=== PATIENT | female | born 1985 | race Caucasian/White ===

== ENCOUNTER 2016-08-14 11:44 | Emergency (ER) | payer SELFPAY ==
[~2016-08-14] VITALS: Ht 154.9 cm; Wt 97.0 kg
[2016-08-14] MEDS ORDERED: SUMA50TA3 PO (12:14)
[2016-08-14] MEDS ORDERED: PROM12.553 RC (12:14)
[2016-08-14] MEDS ORDERED: ONDANSETRON 2MG/ML, 2ML ONE (12:22)
[2016-08-14] MEDS ORDERED: MORPHINE SULFATE 4 MG/ML, 1ML ONE (12:22)
[2016-08-14] MEDS ORDERED: MAALOX/HYOSCYAMINE/LIDOCAINE 45 ML BOTTLE ONE (12:22)
[2016-08-14] MEDS ORDERED: SODIUM CHLORIDE FLUSH 10ML SYR IVF ONE ×2 (12:30)
[2016-08-14] MEDS ORDERED: PLEASE ENTER ALLERGIES MC SCH ×2 (12:30)
[2016-08-14] MEDS ORDERED: NITROGLYCERIN SINGLE TAB 0.4 MG SL PRN (12:30)
[2016-08-14] MEDS ORDERED: PLEASE ENTER HEIGHT AND WEIGHT MC SCH (12:30)
[2016-08-14] MEDS ORDERED: MAALOX/HYOSCYAMINE/LIDOCAINE 45 ML BOTTLE PO ONE (12:30)
[2016-08-14] MEDS ORDERED: ASPIRIN 81 MG TABLET CHEW PO ONE (12:30)
[2016-08-14] MEDS ORDERED: MORPHINE SULFATE 4 MG/ML, 1ML IVPush PRN (12:30)
[2016-08-14] MEDS ORDERED: ONDANSETRON 2MG/ML, 2ML IVPush ONE (12:30)
[2016-08-14 12:48] LABS: ASPARTATE AMINO TRANSFERASE 16 U/L (15-37); BLOOD UREA NITROGEN 9 mg/dL (7-18)
[2016-08-14 13:01] LABS: IS PT STATUS REG ER OR PRE ER? YES
[2016-08-14] MEDS ORDERED: KETOROLAC 30 MG/1 ML IVPush ONE (14:00)
[2016-08-14] MEDS ORDERED: KETOROLAC 30 MG/1 ML ONE (14:03)
[2016-08-14] MEDS ORDERED: OMNIPAQUE 350 MG/ML, 100ML BOTTLE ONE (15:22)
[2016-08-14 16:20] VITALS: BP 106/75
[2016-08-17] MEDS ORDERED: Tramadol Hcl PO (14:59)
== END 2016-08-14 16:53 | disposition home or self-care (01) ==
LOC: ED 15:28
DX: R07.2 Precordial pain (principal)
CPT/HCPCS: 36415; 71010; 71275; 80053; 83690; 83880; 84436; 84439; 84443; 84481; 84484; 84703; 85025; 85379; 85651; 86140; 93005; 96374; 96375; 99285; J1885; J2405; Q9967

== ENCOUNTER 2016-08-18 10:18 | Emergency (ER) | payer SELFPAY ==
[~2016-08-18] VITALS: Ht 154.9 cm; Wt 96.5 kg
[~2016-08-18 10:18] MED LIST: PROM12.553 RC; SUMA50TA3 PO; Tramadol Hcl PO
[2016-08-18 11:16] LABS: ANTI-Xa-UNFRACTIONATED HEP 0.04 IU/mL (0.30-0.70)
[2016-08-18 11:18] LABS: ASPARTATE AMINO TRANSFERASE 14 U/L (15-37); BLOOD UREA NITROGEN 10 mg/dL (7-18)
[2016-08-18 12:46] VITALS: BP 132/82
== END 2016-08-18 12:48 ==
LOC: ED 11:29
DX: R42 Dizziness and giddiness (principal); Z90.710 Acquired absence of both cervix and uterus
CPT/HCPCS: 36415; 70450; 80053; 85025; 85520; 85610; 85651; 85730; 93005; 99285

== ENCOUNTER 2016-10-14 15:15 | Emergency (ER) | payer SELFPAY ==
[~2016-10-14] VITALS: Ht 154.9 cm; Wt 98.6 kg
[2016-10-14] MEDS ORDERED: KETOROLAC 30 MG/1 ML IM ONE (16:00)
[2016-10-14] MEDS ORDERED: KETOROLAC 30 MG/1 ML ONE (16:03)
[2016-10-14 16:53] VITALS: BP 120/78
[2016-10-14 16:54] LABS: BLOOD UREA NITROGEN 8 mg/dL (7-18)
[2016-10-14 16:58] LABS: IS PT STATUS REG ER OR PRE ER? YES
== END 2016-10-14 17:30 | disposition home or self-care (01) ==
LOC: ED 16:11
DX: R07.2 Precordial pain (principal); R07.89 Other chest pain
CPT/HCPCS: 36415; 71020; 80048; 82040; 84484; 84703; 85025; 93005; 96372; 99285; J1885

== ENCOUNTER 2017-06-17 19:35 | Emergency (ER) | payer OTHER ==
[~2017-06-17] VITALS: Ht 154.9 cm; Wt 100.0 kg
[~2017-06-17 19:35] MED LIST changes: +ALBU18HF INH
[2017-06-17 20:29] LABS: BASOPHILS # (AUTO) 0.06 x10^3/uL (0-0.1); BASOPHILS % (AUTO) 1 % (0-1); EOSINOPHILS % (AUTO) 1 % (1-7); LYMPHOCYTES # (AUTO) 2.61 x10^3/uL (1-3.4); LYMPHOCYTES % (AUTO) 30 % (22-44); MD NO; MEAN CORPUSCULAR HEMOGLOBIN 30.7 pg (27.0-34.8); MEAN CORPUSCULAR HGB CONC 33.7 g/dL (32.4-35.8); MEAN CORPUSCULAR VOLUME 91.1 fL (80-100); MEAN PLATELET VOLUME 7.9 fL (7.4-10.4); MONOCYTES # (AUTO) 0.57 x10^3/uL (0.2-0.8); MONOCYTES % (AUTO) 7 % (2-9); NEUTROPHILS # (AUTO) 5.46 x10^3/uL (1.8-6.8); NEUTROPHILS % (AUTO) 62 % (42-75); PLATELET COUNT 404 x10^3/uL (130-400); RED BLOOD COUNT 3.94 x10^6/uL (3.82-5.3); RED CELL DISTRIBUTION WIDTH 13.9 % (9.6-15.2)
[2017-06-17 20:41] LABS: ALANINE AMINOTRANSFERASE 36 U/L (12-78); ALBUMIN 3.1 g/dL (3.4-5.0); ANION GAP 8 mmol/L (5-15); CALCIUM 8.5 mg/dL (8.5-10.1); CHLORIDE 108 mmol/L (98-107)
[2017-06-17 20:46] LABS: ALKALINE PHOSPHATASE 86 U/L (45-117); BILIRUBIN,TOTAL 0.3 mg/dL (0.2-1.0); CREATININE 0.71 mg/dL (0.55-1.02); TOTAL PROTEIN 7.5 g/dL (6.4-8.2); TROPONIN I < 0.015 ng/mL (0.000-0.045)
[2017-06-17 22:05] VITALS: BP 113/80
== END 2017-06-17 22:05 | disposition home or self-care (01) ==
LOC: ED 19:46
DX: R55 Syncope and collapse (principal); R00.2 Palpitations; J45.909 Unspecified asthma, uncomplicated; E87.6 Hypokalemia; Z90.710 Acquired absence of both cervix and uterus
CPT/HCPCS: 36415; 71045; 80053; 84484; 84703; 85025; 93005; 99285

== ENCOUNTER 2017-07-09 15:09 | Emergency (ER) | payer OTHER ==
[~2017-07-09] VITALS: Ht 154.9 cm; Wt 108.0 kg
[~2017-07-09 15:09] MED LIST changes: +ONDA4TAB10 PO; +RIZA10TA34 PO; +TOPI25TA8 PO
[2017-07-09 17:36] LABS: ALBUMIN 3.4 g/dL (3.4-5.0); ANION GAP 9 mmol/L (5-15); CALCIUM 8.6 mg/dL (8.5-10.1); CHLORIDE 108 mmol/L (98-107); CREATININE 0.66 mg/dL (0.55-1.02)
[2017-07-09 17:37] LABS: BASOPHILS # (AUTO) 0.14 x10^3/uL (0-0.1); BASOPHILS % (AUTO) 2 % (0-1); EOSINOPHILS # (AUTO) 0.07 x10^3/uL (0-0.4); EOSINOPHILS % (AUTO) 1 % (1-7); LYMPHOCYTES % (AUTO) 22 % (22-44); MD NO; MEAN CORPUSCULAR HEMOGLOBIN 29.9 pg (27.0-34.8); MEAN CORPUSCULAR VOLUME 90.6 fL (80-100); MEAN PLATELET VOLUME 8.3 fL (7.4-10.4); MONOCYTES # (AUTO) 0.56 x10^3/uL (0.2-0.8); MONOCYTES % (AUTO) 6 % (2-9); NEUTROPHILS % (AUTO) 70 % (42-75); PLATELET COUNT 450 x10^3/uL (130-400); RED BLOOD COUNT 4.12 x10^6/uL (3.82-5.3); RED CELL DISTRIBUTION WIDTH 13.6 % (9.6-15.2)
[2017-07-09 17:40] LABS: TROPONIN I < 0.015 ng/mL (0.000-0.045)
[2017-07-09 18:15] VITALS: BP 135/92
== END 2017-07-09 18:18 | disposition home or self-care (01) ==
LOC: ED 18:10
DX: R07.2 Precordial pain (principal); Z90.710 Acquired absence of both cervix and uterus; G43.909 Migraine, unspecified, not intractable, without status migrainosus; J45.909 Unspecified asthma, uncomplicated; F41.9 Anxiety disorder, unspecified
CPT/HCPCS: 36415; 71045; 80048; 82040; 84484; 85025; 93005; 99285

== ENCOUNTER 2019-02-25 11:23 | Emergency (ER) | payer OTHER ==
[~2019-02-25] VITALS: Ht 154.9 cm; Wt 114.0 kg
--- NOTE | 2019-02-25 12:40 | NUR ---
[facility]
--- NOTE | 2019-02-25 12:41 | NUR ---
PT TO ROOM FROM LOBBY
[2019-02-25] MEDS ORDERED: MECLIZINE CHEWABLE 25 MG TAB PO ONE (13:00)
[2019-02-25] MEDS ORDERED: SODIUM CHLORIDE FLUSH 10ML SYR IVF ONE (13:00)
--- NOTE | 2019-02-25 13:00 | NUR ---
THIS IS A 33 YO FEMALE COMING IN FOR DIZZINESS AND "I FELT LIKE I WAS GOING TO PASS OUT", PATIENT STATES "I WAS FEELING DIZZY AND LIGTHEADED AT WORK, AND MY VISION SARTED GETTING DARKER". PATIENT DENIES ANY LOC, DENIES N/V, NO SYNCOPAL HX. DENIES SOB OR CP. 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 PATIENT PLACED ON OPERATIONS STAFF SPECIALIST SECURITY, NSR NOTED, CONTINUOUS SPO2 AT 97%, CYCLE BP Q1HR. CALL LIGHT IN REACH, DENIES FURTHER NEEDS AT THIS TIME.
[2019-02-25] MEDS ORDERED: AMIT10TA PO (13:01)
[2019-02-25 13:24] LABS: BASOPHILS # (AUTO) 0.12 x10^3/uL (0-0.1); BASOPHILS % (AUTO) 2 % (0-1); EOSINOPHILS # (AUTO) 0.11 x10^3/uL (0-0.4); EOSINOPHILS % (AUTO) 1 % (1-7); LYMPHOCYTES # (AUTO) 1.32 x10^3/uL (1-3.4); LYMPHOCYTES % (AUTO) 16 % (22-44); MD NO; MEAN CORPUSCULAR HEMOGLOBIN 30.1 pg (27.0-34.8); MEAN CORPUSCULAR HGB CONC 32.7 g/dL (32.4-35.8); MEAN CORPUSCULAR VOLUME 91.9 fL (80-100); MEAN PLATELET VOLUME 7.8 fL (7.4-10.4); MONOCYTES # (AUTO) 0.41 x10^3/uL (0.2-0.8); MONOCYTES % (AUTO) 5 % (2-9); NEUTROPHILS # (AUTO) 6.19 x10^3/uL (1.8-6.8); NEUTROPHILS % (AUTO) 76 % (42-75); PLATELET COUNT 385 x10^3/uL (130-400); RED BLOOD COUNT 4.02 x10^6/uL (3.82-5.3); RED CELL DISTRIBUTION WIDTH 13.9 % (9.6-15.2)
[2019-02-25 13:34] LABS: ALANINE AMINOTRANSFERASE 38 U/L (12-78); ALBUMIN 3.2 g/dL (3.4-5.0); ANION GAP 6 mmol/L (5-15); CALCIUM 8.2 mg/dL (8.5-10.1); CHLORIDE 110 mmol/L (98-107); CREATININE 0.72 mg/dL (0.55-1.02)
[2019-02-25 13:37] LABS: ALKALINE PHOSPHATASE 90 U/L (45-117); BILIRUBIN,TOTAL 0.4 mg/dL (0.2-1.0); TOTAL PROTEIN 7.6 g/dL (6.4-8.2)
[2019-02-25] MEDS ORDERED: MECLIZINE CHEWABLE 25 MG TAB ONE (14:29)
--- NOTE | 2019-02-25 14:33 | NUR ---
PT AMBULATED TO BATHROOM, GAIT STEADY, UA OBTAINED.
--- NOTE | 2019-02-25 14:58 | NUR ---
ORTHOSTATICS COMPLETED, NO DRASTIC CHANGE OF VITAL SIGNS.
[2019-02-25 14:59] LABS: MICROSCOPIC AUTO
[2019-02-25 15:00] LABS: CULTURE INDICATED? NO
[2019-02-25 15:43] VITALS: BP 131/83
--- NOTE | 2019-02-25 15:43 | NUR ---
Patient/Caregiver given discharge instructions and they have confirmed that they understand the instructions. Patient ambulatory with steady gait.
== END 2019-02-25 15:47 | disposition home or self-care (01) ==
LOC: ED 13:19
DX: H81.399 Other peripheral vertigo, unspecified ear (principal)
CPT/HCPCS: 36415; 70450; 80053; 81001; 85025; 93005; 99284

== ENCOUNTER 2019-10-21 11:19 | Emergency (ER) | payer OTHER ==
[~2019-10-21] VITALS: Ht 154.9 cm; Wt 108.0 kg
[~2019-10-21 11:19] MED LIST changes: +AMIT10TA PO
[2019-10-21] MEDS ORDERED: SODIUM CHLORIDE FLUSH 10ML SYR IVF ONE (12:00)
[2019-10-21] MEDS ORDERED: SODIUM CHLORIDE 0.9% 1,000ML IVBOLUS ONE (12:00)
[2019-10-21 12:28] LABS: BASOPHILS % (AUTO) 0 % (0-1); EOSINOPHILS # (AUTO) 0.03 x10^3/uL (0-0.4); EOSINOPHILS % (AUTO) 1 % (1-7); LYMPHOCYTES # (AUTO) 0.93 x10^3/uL (1-3.4); LYMPHOCYTES % (AUTO) 16 % (22-44); MD NO; MEAN CORPUSCULAR HEMOGLOBIN 30.2 pg (27.0-34.8); MEAN CORPUSCULAR HGB CONC 33.4 g/dL (32.4-35.8); MEAN CORPUSCULAR VOLUME 90.5 fL (80-100); MEAN PLATELET VOLUME 7.9 fL (7.4-10.4); MONOCYTES # (AUTO) 0.17 x10^3/uL (0.2-0.8); MONOCYTES % (AUTO) 3 % (2-9); NEUTROPHILS # (AUTO) 4.59 x10^3/uL (1.8-6.8); NEUTROPHILS % (AUTO) 80 % (42-75); PLATELET COUNT 357 x10^3/uL (130-400); RED BLOOD COUNT 4.23 x10^6/uL (3.82-5.3); RED CELL DISTRIBUTION WIDTH 13.9 % (9.6-15.2)
[2019-10-21 12:39] LABS: ALBUMIN 3.1 g/dL (3.4-5.0); ANION GAP 5 mmol/L (5-15); CALCIUM 8.3 mg/dL (8.5-10.1); CHLORIDE 110 mmol/L (98-107); CREATININE 0.67 mg/dL (0.55-1.02)
[2019-10-21 12:45] LABS: TROPONIN I < 0.015 ng/mL (0.000-0.045)
--- NOTE | 2019-10-21 12:45 | NUR ---
PT UOB TO COMMODE AT BEDSIDE. STATES SHE CONTINUES TO FEEL LIGHTHEADED. IV TO BE ESTABLISHED WITH FLUID BOLUS TO BE GIVEN
--- NOTE | 2019-10-21 13:29 | NUR ---
WATCHING TV WHILE BOLUS INFUSES NOTED ON MAR
[2019-10-21 15:15] VITALS: BP 132/87
--- NOTE | 2019-10-21 15:16 | NUR ---
BREAK RN NOTE: PT A&O, RESPS EVEN AND UNLABORED. SINUS TACH ON HOSE CEMENTER WITH NO ECTOPY NOTED. PIV DC'D WITH TIP INTACT. PT GIVEN DC INSTRUCTIONS, PT AMBULATORY TO DC WITH STEADY GAIT, MOTHER PICKING PT UP TO DRIVE HOME.
== END 2019-10-21 15:17 | disposition home or self-care (01) ==
LOC: ED 13:10
DX: R55 Syncope and collapse (principal); R42 Dizziness and giddiness; R09.81 Nasal congestion; R94.31 Abnormal electrocardiogram [ECG] [EKG]; R53.1 Weakness; Z90.710 Acquired absence of both cervix and uterus
CPT/HCPCS: 36415; 71045; 80048; 82040; 84484; 84703; 85025; 93005; 96360; 96361; 99285; J7030

== ENCOUNTER 2019-11-03 22:46 | Emergency (ER) | payer OTHER ==
[~2019-11-03] VITALS: Ht 157.5 cm; Wt 90.0 kg
--- NOTE | 2019-11-03 22:56 | NUR ---
Pt presents to ed c/o "chest pressure" since 1500 this evening. 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 +covid swab 2.5 weeks ago. States s/s subsided 3 days ago. "I had everything going on, including no taste. It was awful." Pericarditis in 2017, denies further cardiac hx. Denies any pertinent associated s/s w/ cp. States pain is intermittent. All monitoring applied. VSS. Call light within reach. EKG accomplished upon admit. MD at bedside. Report to Lucia conrad.
[2019-11-03 23:41] LABS: BASOPHILS # (AUTO) 0.16 x10^3/uL (0-0.1); BASOPHILS % (AUTO) 1 % (0-1); EOSINOPHILS # (AUTO) 0.17 x10^3/uL (0-0.4); EOSINOPHILS % (AUTO) 1 % (1-7); LYMPHOCYTES # (AUTO) 2.25 x10^3/uL (1-3.4); LYMPHOCYTES % (AUTO) 19 % (22-44); MD NO; MEAN CORPUSCULAR HEMOGLOBIN 29.9 pg (27.0-34.8); MEAN CORPUSCULAR HGB CONC 33.2 g/dL (32.4-35.8); MEAN PLATELET VOLUME 7.8 fL (7.4-10.4); MONOCYTES # (AUTO) 0.82 x10^3/uL (0.2-0.8); MONOCYTES % (AUTO) 7 % (2-9); NEUTROPHILS # (AUTO) 8.77 x10^3/uL (1.8-6.8); NEUTROPHILS % (AUTO) 72 % (42-75); PLATELET COUNT 456 x10^3/uL (130-400); RED BLOOD COUNT 4.02 x10^6/uL (3.82-5.3); RED CELL DISTRIBUTION WIDTH 14.3 % (9.6-15.2)
[2019-11-03 23:49] LABS: ALANINE AMINOTRANSFERASE 48 U/L (12-78); ALBUMIN 3.1 g/dL (3.4-5.0); ANION GAP 8 mmol/L (5-15); CALCIUM 8.8 mg/dL (8.5-10.1); CHLORIDE 106 mmol/L (98-107)
[2019-11-03 23:54] LABS: ALKALINE PHOSPHATASE 88 U/L (45-117); BILIRUBIN,TOTAL 0.5 mg/dL (0.2-1.0); TOTAL PROTEIN 7.7 g/dL (6.4-8.2); TROPONIN I < 0.015 ng/mL (0.000-0.045)
[2019-11-04 00:40] VITALS: BP 149/92
== END 2019-11-04 00:56 | disposition home or self-care (01) ==
LOC: ED 23:34
DX: U07.1 COVID-19 (principal); J15.9 Unspecified bacterial pneumonia; J12.89 Other viral pneumonia; R07.2 Precordial pain; J45.909 Unspecified asthma, uncomplicated; Z90.710 Acquired absence of both cervix and uterus
CPT/HCPCS: 36415; 71045; 80053; 80307; 83690; 84484; 84703; 85025; 93005; 99285

== ENCOUNTER 2019-11-05 15:48 | Emergency (ER) | payer OTHER ==
[~2019-11-05] VITALS: Ht 157.5 cm; Wt 110.2 kg
[2019-11-05] MEDS ORDERED: DIPHENHYDRAMINE 25 MG CAPSULE ONE (16:20)
[2019-11-05] MEDS ORDERED: DIPHENHYDRAMINE 25 MG CAPSULE PO ONE (16:30)
[2019-11-05 16:45] LABS: BASOPHILS # (AUTO) 0.08 x10^3/uL (0-0.1); BASOPHILS % (AUTO) 1 % (0-1); EOSINOPHILS # (AUTO) 0.14 x10^3/uL (0-0.4); EOSINOPHILS % (AUTO) 2 % (1-7); LYMPHOCYTES # (AUTO) 2.55 x10^3/uL (1-3.4); LYMPHOCYTES % (AUTO) 29 % (22-44); MD NO; MEAN CORPUSCULAR HEMOGLOBIN 29.7 pg (27.0-34.8); MEAN CORPUSCULAR VOLUME 90.1 fL (80-100); MEAN PLATELET VOLUME 7.9 fL (7.4-10.4); MONOCYTES # (AUTO) 0.59 x10^3/uL (0.2-0.8); MONOCYTES % (AUTO) 7 % (2-9); NEUTROPHILS % (AUTO) 62 % (42-75); PLATELET COUNT 449 x10^3/uL (130-400); RED CELL DISTRIBUTION WIDTH 14.2 % (9.6-15.2)
[2019-11-05 16:46] LABS: ALBUMIN 2.8 g/dL (3.4-5.0); ANION GAP 6 mmol/L (5-15); CALCIUM 8.3 mg/dL (8.5-10.1); CHLORIDE 107 mmol/L (98-107); CREATININE 0.77 mg/dL (0.55-1.02)
--- NOTE | 2019-11-05 16:51 | NUR ---
PT. IS A & O X 4 WITH A GCS OF 15. PT. STATES SHE HAD A POSITIVE COVID TEST IN SEPTEMBER. NO FURTHER TESTING SINCE. PT. PRESENTS WITH C/O POSSIBLE ALLERGIC REACTION TO A ZPACK. PT. STATES SHE HAS AN ALLERGY TO IT AND WAS PRESCRIBED IT FOR A PNEUMONIA. PT. IS PINK, WARM AND DRY. LUNGS ARE CTA THROUGHOUT WITH HER CHEST RISE AND FALL BEING SYMMETRICAL. PT.'S RESPIRATIONS ARE EUPNEIC AND SATS ARE 100% ON ROOM AIR. S1 S2 NOTED WITHOUT MURMURS RUBS OR GALLOPS. CAP REFILL IS BRISK, LESS THAN 3 SECONDS. PULSES ARE +2 THROUGHOUT. PT. IS AMBULATORY WITH A STEADY GAIT AND MOVES ALL EXTREMITIES WITHIN NORMAL LIMITS. DR. KYLE IS AT THE BEDSIDE AND AWARE OF THE PT.'S BLOOD PRESSURE. PT. WAS MEDICATED ORDERED. SIDERAILS ARE UP AND THE CALL LIGHT IS IN PLACE.
--- NOTE | 2019-11-05 18:20 | NUR ---
PT. WAS GIVEN DISCHARGE INSTRUCTIONS AND SCRIPTS WITH UNDERSTANDING VERBALIZED ALONG WITH WILLINGNESS TO COMPLY. PT. WAS AMBULATORY TO THE DISCHARGE DESK. VITALS IMPROVED.
[2019-11-05 18:24] VITALS: BP 127/85
== END 2019-11-05 18:26 | disposition home or self-care (01) ==
LOC: ED 16:25
DX: R06.02 Shortness of breath (principal); T36.3X5A Adverse effect of macrolides, initial encounter; Y92.89 Other specified places as the place of occurrence of the external cause; R53.1 Weakness; J45.909 Unspecified asthma, uncomplicated
CPT/HCPCS: 36415; 71045; 80048; 82040; 85025; 99284; J7512; Q0163

== ENCOUNTER 2019-11-07 12:15 | Emergency (ER) | payer OTHER ==
[~2019-11-07] VITALS: Ht 157.5 cm; Wt 110.0 kg
[2019-11-07 12:18] VITALS: BP 139/103
--- NOTE | 2019-11-07 12:36 | NUR ---
"ALLERGIC REACTION TO THE NEW ABX (DOXYCYCLINE) THAT I WAS GIVEN 2 DAYS AGO. EXTREME FATIGUE AND LETHARGIC. I TOOK BENADRYL AT HOME AND I'M NOT BETTER" BEGAN AFTER 0830 TODAY. THROWING UP NON-STOP" BEING TX FOR PNUEMONIA IN LEFT LUNG.TESTED COVID POSITIVE OCTOBER 14. PT IN BED IN GOWN WITH [employer] DRIVER, SPO2, BP Q 30 MIN, CALL LIGHT IN REACH, AWATING MD TO SEE.
[2019-11-07 13:34] LABS: BASOPHILS # (AUTO) 0.06 x10^3/uL (0-0.1); BASOPHILS % (AUTO) 1 % (0-1); EOSINOPHILS # (AUTO) 0.05 x10^3/uL (0-0.4); EOSINOPHILS % (AUTO) 1 % (1-7); LYMPHOCYTES # (AUTO) 2.45 x10^3/uL (1-3.4); LYMPHOCYTES % (AUTO) 26 % (22-44); MD NO; MEAN CORPUSCULAR HEMOGLOBIN 29.2 pg (27.0-34.8); MEAN CORPUSCULAR HGB CONC 32.1 g/dL (32.4-35.8); MEAN PLATELET VOLUME 7.6 fL (7.4-10.4); MONOCYTES # (AUTO) 0.51 x10^3/uL (0.2-0.8); MONOCYTES % (AUTO) 5 % (2-9); NEUTROPHILS # (AUTO) 6.52 x10^3/uL (1.8-6.8); NEUTROPHILS % (AUTO) 68 % (42-75); PLATELET COUNT 437 x10^3/uL (130-400); RED CELL DISTRIBUTION WIDTH 14.5 % (9.6-15.2)
[2019-11-07 13:46] LABS: ANION GAP 3 mmol/L (5-15); CALCIUM 8.8 mg/dL (8.5-10.1); CHLORIDE 108 mmol/L (98-107)
[2019-11-07 13:53] LABS: ALANINE AMINOTRANSFERASE 44 U/L (12-78); ALKALINE PHOSPHATASE 86 U/L (45-117); BILIRUBIN,TOTAL 0.4 mg/dL (0.2-1.0); CREATININE 0.76 mg/dL (0.55-1.02); TOTAL PROTEIN 7.4 g/dL (6.4-8.2)
[2019-11-07 14:55] LABS: MICROSCOPIC AUTO
== END 2019-11-07 16:35 | disposition home or self-care (01) ==
LOC: ED 13:18
DX: R11.2 Nausea with vomiting, unspecified (principal); R53.1 Weakness; R53.81 Other malaise; R94.31 Abnormal electrocardiogram [ECG] [EKG]; J45.909 Unspecified asthma, uncomplicated; G43.909 Migraine, unspecified, not intractable, without status migrainosus; Z90.710 Acquired absence of both cervix and uterus
CPT/HCPCS: 36415; 71045; 80053; 81001; 83690; 84443; 84703; 85025; 87086; 93005; 99285

== ENCOUNTER 2019-11-11 10:09 | Emergency (ER) | payer OTHER ==
[~2019-11-11] VITALS: Ht 157.5 cm; Wt 110.0 kg
[2019-11-11 10:29] VITALS: BP 124/94
--- NOTE | 2019-11-11 10:58 | NUR ---
DEVELOPMENT SPECIALIST: PT AMBULATORY TO ROOM FROM LOBBY.
--- NOTE | 2019-11-11 11:12 | NUR ---
FIRST CONTACT WITH PT. PT SITTING UP IN [facility], NAD NOTED. RESPIRATIONS EVEN/UNLABORED WITHOUT ACCESSORY MUSCLE USE. AIRWAY PATENT, SPEECH CLEAR. PT REPORTS A SENSATION OF "THROAT CLOSING" FOLLOWING COUGHING SPELLS X TWO DAYS. DENIES DIFFICULTY SWALLOWING OR BREATHING. DIAGNOSED WITH PNEUMONIA ONE WEEK AGO, ON DOXYCYCLINE AND HAS BEEN TAKING AFRIN X TWO DAYS FOR CONGESTION. REPORTS "I FEEL LIKE MY PNEUMONIA IS GONE" DENIES PRODUCTIVE COUGH/FEVER/CHEST PAIN. MOUTH/THROAT UNREMARKABLE. UVULA AND TONGUE MIDLINE, MMM; TONSILS WO ERYTHEMA OR EXUDATE. SPO2 >95% ON RA. RR WNL. BP/SPO2 MONITORING IN PLACE. AWAITING ERP EVAL.
--- NOTE | 2019-11-11 12:06 | NUR ---
DC EDUCATION PROVIDED, PT DEMONSTRATES UNDERSTANDING. PT AMBULATED STEADILY TO DC W RN
== END 2019-11-11 12:07 | disposition home or self-care (01) ==
LOC: ED 10:45
DX: U07.1 COVID-19 (principal); J12.9 Viral pneumonia, unspecified; J45.909 Unspecified asthma, uncomplicated; R00.0 Tachycardia, unspecified
CPT/HCPCS: 71045; 99283

== ENCOUNTER 2020-04-15 15:46 | Emergency (ER) | payer OTHER ==
[~2020-04-15] VITALS: Ht 157.5 cm; Wt 114.7 kg
--- NOTE | 2020-04-15 16:06 | NUR ---
Patient presents to ER c/o SOB x6 days. Patient was +COVID in October and took a few weeks to recover. 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 Patient states she feels like she is trying to bring up fluid in her lungs. Patient has tried inhalers with no relief. Patient also c/o "a numb feeling" in the epigastric area. Hx of pericarditis. Denies swelling in lower extremities. Patient is in NAD. REspirations even and unlabored.
[2020-04-15 16:48] LABS: BASOPHILS % (AUTO) 1 % (0-1); EOSINOPHILS % (AUTO) 1 % (1-7); LYMPHOCYTES % (AUTO) 25 % (22-44); MEAN CORPUSCULAR HEMOGLOBIN 30.6 pg (27.0-34.8); MEAN CORPUSCULAR HGB CONC 33.9 g/dL (32.4-35.8); MEAN PLATELET VOLUME 8.1 fL (7.4-10.4); MONOCYTES % (AUTO) 5 % (2-9); NEUTROPHILS % (AUTO) 69 % (42-75); PLATELET COUNT 356 x10^3/uL (130-400); RED BLOOD COUNT 3.86 x10^6/uL (3.82-5.3); RED CELL DISTRIBUTION WIDTH 14.5 % (9.6-15.2)
[2020-04-15 16:52] LABS: MD NO
[2020-04-15 16:59] LABS: ALANINE AMINOTRANSFERASE 49 U/L (12-78); ALBUMIN 3.3 g/dL (3.4-5.0); ANION GAP 7 mmol/L (5-15); CALCIUM 8.6 mg/dL (8.5-10.1); CHLORIDE 111 mmol/L (98-107); CREATININE 0.94 mg/dL (0.55-1.02)
[2020-04-15 17:04] LABS: ALKALINE PHOSPHATASE 92 U/L (45-117); BILIRUBIN,TOTAL 0.3 mg/dL (0.2-1.0); TOTAL PROTEIN 7.3 g/dL (6.4-8.2); TROPONIN I < 0.015 ng/mL (0.000-0.045)
[2020-04-15 18:00] VITALS: BP 147/96
--- NOTE | 2020-04-15 18:42 | NUR ---
Patient given discharge instructions and they have confirmed that they understand the instructions. Patient ambulatory with steady gait.
== END 2020-04-15 18:43 | disposition home or self-care (01) ==
LOC: ED 16:05
DX: J20.8 Acute bronchitis due to other specified organisms (principal); R06.00 Dyspnea, unspecified; R06.02 Shortness of breath; R07.89 Other chest pain; G43.909 Migraine, unspecified, not intractable, without status migrainosus; J45.909 Unspecified asthma, uncomplicated; Z90.710 Acquired absence of both cervix and uterus
CPT/HCPCS: 36415; 71045; 80053; 83880; 84484; 84550; 85025; 85379; 93005; 99285

== ENCOUNTER 2020-04-26 16:53 | Emergency (ER) | payer OTHER ==
[~2020-04-26] VITALS: Ht 157.5 cm; Wt 118.1 kg
--- NOTE | 2020-04-26 17:00 | NUR ---
CALLED FOR PT. PT NOT IN LOBBY
--- NOTE | 2020-04-26 18:15 | NUR ---
Nita rodriguez in [facility] - 04/26/20 at 1818 by LOGAN Pt to room at this time.
--- NOTE | 2020-04-26 18:20 | NUR ---
Patient roomed from triage With assessment patient complaining of migraine similiar to what she chronically experiences no focal deficits/vss
--- NOTE | 2020-04-26 18:54 | NUR ---
REPORT RECIEVED FROM YAQUELIN QUEEN
[2020-04-26] MEDS ORDERED: DIPHENHYDRAMINE 50 MG/ML, 1ML ONE (18:57)
[2020-04-26] MEDS ORDERED: KETOROLAC 30 MG/1 ML ONE (18:57)
[2020-04-26] MEDS ORDERED: METOCLOPRAMIDE 5 MG/ML, 2ML ONE (18:57)
[2020-04-26] MEDS ORDERED: DIPHENHYDRAMINE 50 MG/ML, 1ML IVPush ONE (19:00)
[2020-04-26] MEDS ORDERED: KETOROLAC 30 MG/1 ML IVPush ONE (19:00)
[2020-04-26] MEDS ORDERED: METOCLOPRAMIDE 5 MG/ML, 2ML IVPush ONE (19:00)
--- NOTE | 2020-04-26 19:03 | NUR ---
REPORT TO SENTHIL JAMISON
--- NOTE | 2020-04-26 19:09 | NUR ---
pt medicated per emar, call light within reach, no other needs at this time
[2020-04-26] MEDS ORDERED: DEXAMETHASONE 4 MG/ML, 5ML ONE (19:56)
[2020-04-26] MEDS ORDERED: DEXAMETHASONE 4 MG/ML, 1ML IVPush ONE (20:00)
[2020-04-26 20:24] VITALS: BP 163/85
== END 2020-04-26 20:30 | disposition home or self-care (01) ==
LOC: ED 19:05
DX: G43.009 Migraine without aura, not intractable, without status migrainosus (principal); R11.0 Nausea; H53.149 Visual discomfort, unspecified
CPT/HCPCS: 96374; 96375; 99284; J1100; J1200; J1885; J2765

== ENCOUNTER 2020-05-02 11:30 | Emergency (ER) | payer OTHER ==
[~2020-05-02] VITALS: Ht 157.5 cm; Wt 104.5 kg
[2020-05-02] MEDS ORDERED: KETOROLAC 30 MG/1 ML ONE (11:40)
[2020-05-02] MEDS ORDERED: DEXAMETHASONE 4 MG/ML, 5ML ONE (11:40)
[2020-05-02] MEDS ORDERED: METOCLOPRAMIDE 5 MG/ML, 2ML ONE (11:40)
[2020-05-02] MEDS ORDERED: DIPHENHYDRAMINE 50 MG/ML, 1ML ONE (11:40)
[2020-05-02] MEDS ORDERED: KETOROLAC 30 MG/1 ML IVPush ONE (12:00)
[2020-05-02] MEDS ORDERED: DIPHENHYDRAMINE 50 MG/ML, 1ML IVPush ONE (12:00)
[2020-05-02] MEDS ORDERED: DEXAMETHASONE 4 MG/ML, 1ML IVPush ONE (12:00)
[2020-05-02] MEDS ORDERED: SODIUM CHLORIDE FLUSH 10ML SYR IVF ONE (12:00)
[2020-05-02] MEDS ORDERED: SODIUM CHLORIDE 0.9% 1,000ML IVBOLUS ONE (12:00)
[2020-05-02] MEDS ORDERED: METOCLOPRAMIDE 5 MG/ML, 2ML IVPush ONE (12:00)
--- NOTE | 2020-05-02 13:01 | NUR ---
PT UPRIGHT ON GURNEY AWAKE & MORE COMFORTABLE AFTER MEDS, TEXTING ON CELLPHONE, RESPONDS APPROP TO STAFF, NAD, COMFORT MEASURES PROVIDED, CALL LIGHT WITHIN REACH.
[2020-05-02 14:04] VITALS: BP 135/88
--- NOTE | 2020-05-02 14:04 | NUR ---
PT REMAINS UPRIGHT ON GURNEY AWAKE & COMFORTABLE, TEXTING ON CELLPHONE, RESPONDS APPROP TO STAFF, NAD, NO NEEDS AR THIS TIME, CALL LIGHT WITHIN REACH.
--- NOTE | 2020-05-02 14:39 | NUR ---
Patient given discharge instructions and they have confirmed that they understand the instructions. Patient ambulatory with steady gait.
== END 2020-05-02 14:43 | disposition home or self-care (01) ==
LOC: ED 12:25
DX: G43.909 Migraine, unspecified, not intractable, without status migrainosus (principal); H53.149 Visual discomfort, unspecified; Z90.710 Acquired absence of both cervix and uterus
CPT/HCPCS: 96361; 96374; 96375; 99284; J1100; J1200; J1885; J2765; J7030

== ENCOUNTER 2020-07-31 19:14 | Emergency (ER) | payer OTHER ==
[~2020-07-31] VITALS: Ht 157.5 cm; Wt 117.8 kg
--- NOTE | 2020-07-31 19:34 | NUR ---
NO CODE NEURO PER DR PAZ
[2020-07-31] MEDS ORDERED: DIPHENHYDRAMINE 50 MG/ML, 1ML IVPush ONE (20:30)
[2020-07-31] MEDS ORDERED: KETOROLAC 30 MG/1 ML IVPush ONE (20:30)
[2020-07-31] MEDS ORDERED: PROCHLORPERAZINE 5 MG/ML, 2ML IVPush ONE (20:30)
[2020-07-31] MEDS ORDERED: SODIUM CHLORIDE FLUSH 10ML SYR IVF ONE (20:30)
[2020-07-31] MEDS ORDERED: DIPHENHYDRAMINE 50 MG/ML, 1ML ONE (20:35)
[2020-07-31] MEDS ORDERED: PROCHLORPERAZINE 5 MG/ML, 2ML ONE (20:35)
[2020-07-31] MEDS ORDERED: KETOROLAC 30 MG/1 ML ONE (20:36)
--- NOTE | 2020-07-31 21:25 | NUR ---
pt feeling better. states the numbness is still present but her pain has improved.
[2020-07-31 21:58] VITALS: BP 138/72
== END 2020-07-31 22:14 | disposition home or self-care (01) ==
LOC: ED 19:54
DX: G43.909 Migraine, unspecified, not intractable, without status migrainosus (principal); R94.31 Abnormal electrocardiogram [ECG] [EKG]; R20.2 Paresthesia of skin; J45.909 Unspecified asthma, uncomplicated; Z90.710 Acquired absence of both cervix and uterus
CPT/HCPCS: 93005; 96374; 96375; 99284; J0780; J1200; J1885